=== PATIENT | male | born 1950 | race Caucasian/White ===

== ENCOUNTER → 2021-08-09 | Day surgery (SDC) | payer MEDICARE ==
[~2021-08-09] VITALS: Ht 177.8 cm; Wt 113.4 kg
[~2021-08-09] MED LIST: ASPIRIN EC81 MG PO; DIAZEPAM 5MG TAB5 MG PO; LIPITOR20 MG PO; PRILOSEC20 MG PO; TAMSULOSIN HCL0.4 MG PO; VITAMIN E400 UNI2 PO
== END | disposition home or self-care (01) ==
LOC: FAS 07:30
DX: Z12.11 Encounter for screening for malignant neoplasm of colon (principal); D12.2 Benign neoplasm of ascending colon; D12.5 Benign neoplasm of sigmoid colon; K57.30 Diverticulosis of large intestine without perforation or abscess without bleeding; Z86.010 Personal history of colon polyps; Z88.8 Allergy status to other drugs, medicaments and biological substances; Z79.82 Long term (current) use of aspirin
CPT/HCPCS: J2704; J7120